=== PATIENT | female | born 1940 | race African-American/Black ===

== ENCOUNTER 2016-11-26 11:58 | Observation (INO) ==
[2016-11-26] MEDS ORDERED: methylPREDNISolone 125 MG/2 ML VIAL IVP ONE (12:13)
[2016-11-26] MEDS ORDERED: Ipratropium/Albuterol Neb 3 ML IH ONE (12:13)
[2016-11-26] MEDS ORDERED: Albuterol 2.5 MG/3 ML NEBULIZER IH ONE (12:13)
--- NOTE | 2016-11-26 12:17 | Emergency Department Note ---
Disposition Clinical Impression: CHF (congestive heart failure) Qualifiers: Congestive heart failure type: systolic Congestive heart failure chronicity: acute Qualified Code(s): I50.21 - Acute systolic (congestive) heart failure Disposition: Home, Self-Care Condition: Good Referrals: Fritz Sellers MD [Primary Care Provider] - Forms: Work/School Release, ED Satisfaction Letter Time of Disposition: 17:00 SOB HPI - General Chief Complaint: ED General Medical Stated Complaint: SPo2 of 78 and BP of 159/116 at [facility]M Time Seen by Provider: 11/26/16 12:10 Source: patient, EMS Mode of arrival: EMS Limitations: no limitations Nursing Notes Reviewed: Yes Vital Signs Reviewed: Yes - History of Present Illness 76-year-old black female sent from the residential with difficulty breathing. She was apparently noted be short of breath this morning. The patient states she has felt bad for about a week, she states she has had general weakness. She states she has had decreased appetite. She denies a cough. She denies chest pain. She denies fever. The residential noted an O2 saturation of 75% on room air. She was on 3 L on EMS arrival. Her O2 sat was in the 90s on 3 L when they arrived. Pt Subjective Complaint: shortness of breath Onset (ago): day(s) (1) Context: recent illness ( general weakness) Severity: moderate Consistency/Duration: constant Improves with: oxygen, rest Worsens with: exertion Known history of: asthma (As a child) Associated symptoms: Reports: other (Decreased appetite and generalized weakness ) Treatment prior to arrival: oxygen Cough present: No - Related Data Home oxygen amount: none Home Medications Medication Instructions Recorded Confirmed Alendronate Sodium [Fosamax] 70 mg PO QWEEK 11/06/16 11/06/16 Apixaban [Eliquis] 2.5 mg PO BID 11/06/16 11/06/16 Carvedilol [Coreg] 6.25 mg PO BID 11/06/16 11/06/16 CloNIDine Patch [Catapres-TTS] 0.3 mg TD DAILY 11/06/16 11/06/16 Furosemide [Lasix] 10 mg PO DAILY 11/06/16 11/06/16 Losartan Potassium [Cozaar] 100 mg PO DAILY 11/06/16 11/06/16 OLANZapine [Zyprexa] 10 mg IM PRN 11/06/16 OLANZapine [Zyprexa] 10 mg PO BID 11/06/16 11/06/16 risperiDONE 25 mg IM Q2W 11/06/16 11/06/16 Albuterol Sulfate [Albuterol 2 puff IH Q6HR 11/26/16 11/26/16 Inhaler] Allergies Allergy/AdvReac Type Severity Reaction Status Date / Time lisinopril Allergy Rash Verified 11/06/16 00:49 All systems ED: reviewed and negative except as stated. Constitutional: Denies: fever, chills Eyes: Denies: eye discharge ENT ED: Denies: ear pain, throat pain Cardiovascular: Denies: chest pain Respiratory: Reports: dyspnea. Denies: cough Gastrointestinal: Denies: abdominal pain, nausea, vomiting, diarrhea Genitourinary: Denies: urgency, dysuria, frequency Musculoskeletal: Denies: back pain Neurological: Reports: weakness. Denies: numbness, paresthesias Past Medical History - Past Medical History Medical history: Reports: CHF, dementia Psychiatric history: Reports: bipolar, schizophrenia - Social History Smoking Status: Never smoker Alcohol use: Reports: none Drug use: Reports: none Physical Exam - General Limitations: no limitations General appearance: lethargic (But arousable and oriented.) - Head Head exam: atraumatic, normocephalic - Eye Eye exam: Present: PERRL, EOMI, other (Anterior chamber lens is in both eyes.). Absent: scleral icterus, conjunctival injection - ENT ENT exam: normal oropharynx, mucous membranes dry, TM's normal bilaterally - Neck Neck exam: Present: normal inspection, full ROM, trachea midline. Absent: tenderness, lymphadenopathy - Respiratory Respiratory exam: Present: respiratory distress (Ears mildly dyspneic), wheezes (Rare bilateral expiratory), other (Diffuse decreased breath sounds bilaterally) . Absent: stridor, prolonged expiratory phase - Abdominal Exam Abdominal exam: Present: soft, Non-Tender, normal bowel sounds. Absent: organomegaly, mass - Extremities Exam Extremities exam: Present: normal inspection, full ROM, normal capillary refill. Absent: tenderness, pedal edema, calf tenderness - Neurological Exam Neurological exam: Present: oriented X3, CN II-XII intact, reflexes normal, other (Lethargic but arouses easily and converses normally and appears oriented. ). Absent: motor sensory deficit - Psychiatric Psychiatric exam: Present: flat affect - Skin Skin exam: Present: warm, dry, intact Course - Reevaluation(s) Reevaluation #1: The patient is diuresing. She has adult diapers on and keeps voiding and her adult diapers. We do not have a quantity on the urine output. She says she feels better. I spoke with Dr. Silvestre. He will admit to an observation telemetry bed. Time: 16:59 Vital Signs Temperature 98.2 F 11/26/16 12:04 Pulse Rate 78 11/26/16 12:04 Respiratory Rate 28 11/26/16 12:04 Blood Pressure 119/85 11/26/16 12:04 O2 Sat by Pulse Oximetry 92 11/26/16 12:04 Temperature 98.2 F 11/26/16 16:56 Pulse Rate 60 11/26/16 16:56 Respiratory Rate 18 11/26/16 16:56 Blood Pressure 115/70 11/26/16 16:56 O2 Sat by Pulse Oximetry 95 11/26/16 16:56 Oxygen Delivery Oxygen Delivery Room Air,Nasal Cannula Shortness of Breath/Dyspnea - MDM Narrative Medical decision making narrative: Differential includes but is not limited to sepsis, pneumonia, bronchitis with bronchospasm, pleural effusion, arrhythmia, congestive heart failure, respiratory failure. Her chest x-ray and BNP are consistent with a congestive heart failure. There is no evidence of an infarct, troponins are normal. - Lab Data Lab results reviewed: Yes I reviewed the patient's lab results. Result diagrams: 11/26/16 12:36 11/26/16 12:36 Lab Results 11/26/16 11/26/16 11/26/16 Range/Units 12:36 12:36 12:36 WBC 6.6 (4.3-11.1) K/mcL RBC 4.32 (3.82-4.97) M/mcL Hgb 10.9 L (11.5-15.4) g/dL Hct 33.6 L (35.3-44.9) % MCV 77.8 L (83.0-100.0) fL MCH 25.2 L (28.0-33.3) pg MCHC 32.4 (31.6-35.5) g/dL RDW 17.4 H (11.5-14.5) % Plt Count 165 (140-400) K/mcL Immature Gran % 0.6 (0-4) % Seg Neutrophils % 74.5 % Lymphocytes % 16.7 % Monocytes % 7.8 % Eosinophils % 0.2 % Basophils % 0.2 % Neutrophils # 4.9 (1.6-8.9) K/mcL Lymphocytes # 1.1 (0.6-4.6) K/mcL Monocytes # 0.5 (0.0-1.3) K/mcL Eosinophils # 0.0 (0.0-0.6) K/mcL Basophils # 0.0 (0.0-0.2) K/mcL PT 13.9 H (9.4-12.1) Seconds INR 1.3 ABG pH (7.32-7.45) pH Units ABG pCO2 (35-45) mmHg ABG pO2 (85-104) mmHg ABG HCO3 (21-27) mEQ/L ABG Total CO2 (20-26) mEq/L ABG O2 Saturation (95-98) % ABG Base Excess (-2.0 to 3.0) mEq/L VBG Lactic Acid (0.5-2.2) mmol/L Liter Flow L/MIN Blood Gas Modality Inspired O2 % Sodium 140 (136-145) mEq/L Potassium 4.3 (3.5-4.5) mEq/L Chloride 108 (98-109) mEq/L Carbon Dioxide 24 (19-29) mEq/L BUN 25 H (7-20) mg/dL Creatinine 0.89 (0.57-1.11) mg/dL Est GFR ( Amer) > 60 (> 60) Est GFR (Non-Af Amer) > 60 (> 60) BUN/Creatinine Ratio 28 H (6-26) Glucose 161 H (70-99) mg/dL Calculated Osmolality 298 (280-300) Calcium 8.6 (8.6-10.8) mg/dL Total Bilirubin 0.8 (0.2-1.2) mg/dL AST 24 (5-34) Units/L ALT 58 H (0-55) Units/L Alkaline Phosphatase 67 (38-126) Units/L Troponin I (0-0.03) ng/mL B-Natriuretic Peptide (0-100) pg/mL Serum Total Protein 5.1 L (6.0-8.3) g/dL Albumin 2.8 L (3.5-5.0) g/dL Globulin 2.3 L (2.4-3.5) g/dL Albumin/Globulin Ratio 1.2 (1.1-2.2) Urine Color (Yellow) Urine Clarity (Clear) Urine pH (5.0-8.0) pH Units Ur Specific [place] (1.010-1.025) Urine Protein (Neg-Trace) mg/dL Urine Glucose (UA) (Normal) mg/dL Urine Ketones (Negative) mg/dL Urine Blood (Negative) Urine Nitrite (Negative) Urine Bilirubin (Negative) Urine Urobilinogen (Normal) mg/dL Ur Leukocyte Esterase (Negative) Urine Microscopic RBC (0-3) per hpf Urine Microscopic WBC (0-3) per hpf Ur Squamous Epith Cells (None-Few) per lpf Urine Bacteria (None-Few) per hpf Ur Culture Indicated? (NO) 11/26/16 11/26/16 11/26/16 Range/Units 12:36 12:36 12:36 WBC (4.3-11.1) K/mcL RBC (3.82-4.97) M/mcL Hgb (11.5-15.4) g/dL Hct (35.3-44.9) % MCV (83.0-100.0) fL MCH (28.0-33.3) pg MCHC (31.6-35.5) g/dL RDW (11.5-14.5) % Plt Count (140-400) K/mcL Immature Gran % (0-4) % Seg Neutrophils % % Lymphocytes % % Monocytes % % Eosinophils % % Basophils % % Neutrophils # (1.6-8.9) K/mcL Lymphocytes # (0.6-4.6) K/mcL Monocytes # (0.0-1.3) K/mcL Eosinophils # (0.0-0.6) K/mcL Basophils # (0.0-0.2) K/mcL PT (9.4-12.1) Seconds INR ABG pH 7.34 (7.32-7.45) pH Units ABG pCO2 49 H (35-45) mmHg ABG pO2 68 L (85-104) mmHg ABG HCO3 26.5 (21-27) mEQ/L ABG Total CO2 28.0 H (20-26) mEq/L ABG O2 Saturation 92 L (95-98) % ABG Base Excess 0.8 (-2.0 to 3.0) mEq/L VBG Lactic Acid 2.5 H (0.5-2.2) mmol/L Liter Flow 3 L/MIN Blood Gas Modality [place] Inspired O2 32 % Sodium (136-145) mEq/L Potassium (3.5-4.5) mEq/L Chloride (98-109) mEq/L Carbon Dioxide (19-29) mEq/L BUN (7-20) mg/dL Creatinine (0.57-1.11) mg/dL Est GFR ( Amer) (> 60) Est GFR (Non-Af Amer) (> 60) BUN/Creatinine Ratio (6-26) Glucose (70-99) mg/dL Calculated Osmolality (280-300) Calcium (8.6-10.8) mg/dL Total Bilirubin (0.2-1.2) mg/dL AST (5-34) Units/L ALT (0-55) Units/L Alkaline Phosphatase (38-126) Units/L Troponin I 0.01 (0-0.03) ng/mL B-Natriuretic Peptide 1245 H (0-100) pg/mL Serum Total Protein (6.0-8.3) g/dL Albumin (3.5-5.0) g/dL Globulin (2.4-3.5) g/dL Albumin/Globulin Ratio (1.1-2.2) Urine Color (Yellow) Urine Clarity (Clear) Urine pH (5.0-8.0) pH Units Ur Specific [place] (1.010-1.025) Urine Protein (Neg-Trace) mg/dL Urine Glucose (UA) (Normal) mg/dL Urine Ketones (Negative) mg/dL Urine Blood (Negative) Urine Nitrite (Negative) Urine Bilirubin (Negative) Urine Urobilinogen (Normal) mg/dL Ur Leukocyte Esterase (Negative) Urine Microscopic RBC (0-3) per hpf Urine Microscopic WBC (0-3) per hpf Ur Squamous Epith Cells (None-Few) per lpf Urine Bacteria (None-Few) per hpf Ur Culture Indicated? (NO) 11/26/16 11/26/16 Range/Units 13:52 15:07 WBC (4.3-11.1) K/mcL RBC (3.82-4.97) M/mcL Hgb (11.5-15.4) g/dL Hct (35.3-44.9) % MCV (83.0-100.0) fL MCH (28.0-33.3) pg MCHC (31.6-35.5) g/dL RDW (11.5-14.5) % Plt Count (140-400) K/mcL Immature Gran % (0-4) % Seg Neutrophils % % Lymphocytes % % Monocytes % % Eosinophils % % Basophils % % Neutrophils # (1.6-8.9) K/mcL Lymphocytes # (0.6-4.6) K/mcL Monocytes # (0.0-1.3) K/mcL Eosinophils # (0.0-0.6) K/mcL Basophils # (0.0-0.2) K/mcL PT (9.4-12.1) Seconds INR ABG pH (7.32-7.45) pH Units ABG pCO2 (35-45) mmHg ABG pO2 (85-104) mmHg ABG HCO3 (21-27) mEQ/L ABG Total CO2 (20-26) mEq/L ABG O2 Saturation (95-98) % ABG Base Excess (-2.0 to 3.0) mEq/L VBG Lactic Acid (0.5-2.2) mmol/L Liter Flow L/MIN Blood Gas Modality Inspired O2 % Sodium (136-145) mEq/L Potassium (3.5-4.5) mEq/L Chloride (98-109) mEq/L Carbon Dioxide (19-29) mEq/L BUN (7-20) mg/dL Creatinine (0.57-1.11) mg/dL Est GFR ( Amer) (> 60) Est GFR (Non-Af Amer) (> 60) BUN/Creatinine Ratio (6-26) Glucose (70-99) mg/dL Calculated Osmolality (280-300) Calcium (8.6-10.8) mg/dL Total Bilirubin (0.2-1.2) mg/dL AST (5-34) Units/L ALT (0-55) Units/L Alkaline Phosphatase (38-126) Units/L Troponin I 0.02 (0-0.03) ng/mL B-Natriuretic Peptide (0-100) pg/mL Serum Total Protein (6.0-8.3) g/dL Albumin (3.5-5.0) g/dL Globulin (2.4-3.5) g/dL Albumin/Globulin Ratio (1.1-2.2) Urine Color Yellow (Yellow) Urine Clarity Clear (Clear) Urine pH 5.5 (5.0-8.0) pH Units Ur Specific [place] 1.015 (1.010-1.025) Urine Protein Trace (Neg-Trace) mg/dL Urine Glucose (UA) Normal (Normal) mg/dL Urine Ketones Negative (Negative) mg/dL Urine Blood Trace-lysed H (Negative) Urine Nitrite Negative (Negative) Urine Bilirubin Negative (Negative) Urine Urobilinogen Normal (Normal) mg/dL Ur Leukocyte Esterase Negative (Negative) Urine Microscopic RBC 0-3 (0-3) per hpf Urine Microscopic WBC 0-3 (0-3) per hpf Ur Squamous Epith Cells Moderate H (None-Few) per lpf Urine Bacteria Few (None-Few) per hpf Ur Culture Indicated? NO (NO) - Radiology Data Radiology results reviewed: Yes I reviewed the patient's radiology results. ITS Impressions Chest X-Ray 11/26/16 12:13 IMPRESSION: Findings suggest congestive heart failure D/ / Saul Francisco MD / Saul Francisco MD Interpreting Provider: Saul Francisco MD - EKG Data EKG attestation: Yes I reviewed and interpreted this EKG. EKG results narrative: Sinus rhythm, rate of 78 with sinus arrhythmia, wave flattening in the inferior leads, T-wave inversion over the anterior precordium, possible ischemia. Rhythm strip shows a sinus rhythm with a rate of 78, VA interval 130 ms, a QRS of 86 ms with no other ectopy as interpreted by me. This is compared to a tracing dated 11/10, T-wave flattening in the inferior leads is new, T-wave flattening/inversion is slightly more pronounced in the anterior precordial leads.
[2016-11-26 12:53] LABS: Basophils % 0.2 %; Eosinophils % 0.2 %; Hematocrit 33.6 % (35.3-44.9); Hemoglobin 10.9 g/dL (11.5-15.4); Immature Granulocytes % 0.6 % (0-4); Lymphocytes # 1.1 K/mcL (0.6-4.6); Lymphocytes % 16.7 %; Mean Corpuscular HGB Conc 32.4 g/dL (31.6-35.5); Mean Corpuscular Hemoglobin 25.2 pg (28.0-33.3); Mean Corpuscular Volume 77.8 fL (83.0-100.0); Monocytes # 0.5 K/mcL (0.0-1.3); Monocytes % 7.8 %; Neutrophils # 4.9 K/mcL (1.6-8.9); Platelet Count 165 K/mcL (140-400); Red Blood Count 4.32 M/mcL (3.82-4.97); Red Cell Distribution Width 17.4 % (11.5-14.5); Segmented Neutrophils % 74.5 %
[2016-11-26 12:58] LABS: INR 1.3; Prothrombin Time 13.9 Seconds (9.4-12.1)
[2016-11-26 13:11] LABS: Alanine Aminotransferase 58 Units/L (0-55); Albumin 2.8 g/dL (3.5-5.0); Albumin/Globulin Ratio 1.2 (1.1-2.2); Alkaline Phosphatase 67 Units/L (38-126); Aspartate Amino Transferase 24 Units/L (5-34); BUN/Creatinine Ratio 28 (6-26); Bilirubin,Total 0.8 mg/dL (0.2-1.2); Blood Urea Nitrogen 25 mg/dL (7-20); Calcium 8.6 mg/dL (8.6-10.8); Carbon Dioxide 24 mEq/L (19-29); Chloride 108 mEq/L (98-109); Globulin 2.3 g/dL (2.4-3.5); Glucose 161 mg/dL (70-99); Osmolality,Calculated 298 (280-300); Potassium 4.3 mEq/L (3.5-4.5); Sodium 140 mEq/L (136-145); Total Protein 5.1 g/dL (6.0-8.3); eGFR For African Americans > 60 (> 60); eGFR For Non-African Americans > 60 (> 60)
[2016-11-26 13:22] LABS: ABG HCO3 26.5 mEQ/L (21-27); ABG PCO2 49 mmHg (35-45); ABG PH 7.34 pH Units (7.32-7.45); ABG PO2 68 mmHg (85-104)
[2016-11-26 13:23] LABS: ABG Base Excess 0.8 mEq/L (-2.0 to 3.0); ABG Oxygen Saturation 92 % (95-98); Blood Gas FiO2 32 %; Blood Gas Liter Flow 3 L/MIN
[2016-11-26] MEDS ORDERED: Furosemide 40 MG/4 ML VIAL IVP ONE (13:30)
[2016-11-26 13:56] LABS: Bilirubin,Urine Negative (Negative); Blood,Urine Trace-lysed (Negative); Clarity,Urine Clear (Clear); Color,Urine Yellow (Yellow); Glucose,Urine (UA) Normal (Normal); Ketones,Urine Negative (Negative); Leukocyte Esterase,Urine Negative (Negative); Nitrite,Urine Negative (Negative); PH,Urine 5.5 pH Units (5.0-8.0); Protein,Urine Trace mg/dL (Neg-Trace); Specific Gravity,Urine 1.015 (1.010-1.025); Urobilinogen,Urine Normal (Normal)
[2016-11-26 14:06] LABS: Squamous Epithelial Cell,Urine Moderate per lpf (None-Few)
[2016-11-26 14:07] LABS: Bacteria,Urine Few per hpf (None-Few); RBC,Urine 0-3 per hpf (0-3); WBC,Urine 0-3 per hpf (0-3)
[2016-11-26] MEDS ORDERED: Naloxone 0.4 MG/ML INJ IVP PRN (17:32)
[2016-11-26] MEDS: Furosemide 40 MG/4 ML VIAL IVP SCH (20:06)
[2016-11-26] MEDS: APIXABAN 5 MG TABLET PO SCH (21:52)
[2016-11-26] MEDS: OLANZapine 10 MG TAB.RAPDIS PO SCH (21:52)
[2016-11-27] MEDS ORDERED: CloNIDine Patch 0.1 MG PATCH (WEEKLY) TD SCH (09:00)
--- NOTE | 2016-11-27 11:42 | Internal Med History&Physical ---
Date of Encounter: 11/27/16 Time of Encounter: 11:10 Assessment and Plan (1) CHF (congestive heart failure) Current visit: Yes Status: Acute Type and duration unknown. I will order an echocardiogram. We will give additional diuretic and start oral nitrates. Continue resident regimen otherwise. Qualifiers: Congestive heart failure type: unspecified congestive heart failure type Congestive heart failure chronicity: unspecified congestive heart failure chronicity Qualified Code(s): I50.9 - Heart failure, unspecified (2) Microcytic anemia Current visit: Yes Status: Acute We will order anemia testing in a.m. (3) Low TSH level Current visit: Yes Status: Acute TSH was suppressed at 0.186 on 11/06/2016. We recheck TSH in a.m. Internal Medicine - H&P: HPI Chief complaint: Dyspnea Admitted From: Long-term Nursing Facility Plans for Post Hospital Care: Transfer Long-Term Care History of present illness: Ms. Fontanez is a 76 year old female who came to emergency room from the correction after she reported dyspnea. She states dyspnea onset was approximately 1 week ago. She reports there was cough with minimal productivity. She denies pain. She states she felt slightly weak overall. She was evaluated in emergency room and felt to have exacerbation of heart failure. She was admitted to [facility] floor for ongoing care needs. Her cardiovascular history is significant for hypertension. She thinks she had an echocardiogram approximately 1 year ago. She reports a heart catheter approximately 2006 without further intervention recommended. She does not ambulate much at the correction but states she does get dyspneic on exertion. She reports she has had a "blood clot" but thinks it was in her brain rather than her legs or lungs. Her respiratory history significant for being a lifelong nonsmoker and having no documented chronic lung disease. Past Med Surg Social Fam HX - Past Medical History Medical history: CHF, dementia Psychiatric history: bipolar, schizophrenia, other - Past Surgical History Surgical History: orthopedic, other - Social History Smoking Status: Never smoker Smokeless Tobacco Status: No Alcohol use: none Drug use: none Internal Medicine - H&P: Meds Alendronate Sodium [Fosamax] 70 mg PO QWEEK 11/06/16 [History] Apixaban [Eliquis] 2.5 mg PO BID 11/06/16 [History] Carvedilol [Coreg] 6.25 mg PO BID 11/06/16 [History] CloNIDine Patch [Catapres-TTS] 0.3 mg TD DAILY 11/06/16 [History] Furosemide [Lasix] 10 mg PO DAILY 11/06/16 [History] Losartan Potassium [Cozaar] 100 mg PO DAILY 11/06/16 [History] OLANZapine [Zyprexa] 10 mg IM BID PRN 11/06/16 [History] OLANZapine [Zyprexa] 10 mg PO BID 11/06/16 [History] risperiDONE 25 mg IM Q2W 11/06/16 [History] Albuterol Sulfate [Albuterol Inhaler] 2 puff IH Q6HR 11/26/16 [History] Allergies lisinopril Allergy (Verified 11/06/16 00:49) Rash All Systems PM: A 10-system review of systems was performed and is negative for pertinent findings except as documented above in the HPI. Review of systems: Gen.: She states her weight has been stable the past few months Cardiovascular: As per history of present illness Respiratory: As per history of present illness GI: She denies disorders of her liver gallbladder or exocrine pancreas : She denies hematuria dysuria or kidney stones Neurologic: She denies large distribution strokes or seizures. She thinks she had a syncopal episode and has what sounds to be possible TIA 2 years ago without recurrence Endocrine: She reports thyroid abnormality in the past but does not know details. She denies diabetes or hyperlipidemia Hematology/oncology: She has had anemia in the past but does not know details. She denies other blood disorders or internal malignancies Psychiatric: She has bipolar disorder. [place] skeletal: She denies arthritis or gout. - Constitutional Vitals: Temp Pulse Resp BP Pulse Ox 98.5 F 61 14 95/60 93 11/27/16 10:36 11/27/16 10:36 11/27/16 10:36 11/27/16 10:36 11/27/16 10:36 Exam: Gen.: She is a well-developed well-nourished female who appears slightly dyspneic sitting in a chair at bedside HEENT: Head is atraumatic and normocephalic. Eyes: EOMI. There is no scleral icterus. Mouth: Mucosa is moist. Neck: Supple and nontender. There is no thyromegaly or adenopathy noted. Heart: Regular without murmurs gallops or ectopics Lungs: No wheezes or crackles are heard. Abdomen: soft and nontender. No masses or guarding are noted. Exam is limited because she is in the seated position. Extremities: There is no cyanosis edema or clubbing noted. Dorsalis pedis and posterior tibial pulses are trace palpable bilaterally. Neurologic: Mental status: She is talkative and seems to be a reliable historian. Cranial nerves: Smile is symmetric. Forehead wrinkles bilaterally. Tongue protrudes midline. EOMI. Motor: There is no pronator drift. Cerebellar: Finger to nose is intact bilaterally. Skin: Warm and dry Internal Med - H&P Results - Labs CBC & Chem 7: 11/26/16 12:36 11/26/16 12:36 Labs: Cardiac Enzymes 11/26/16 11/27/16 11/27/16 Range/Units 21:00 03:20 09:07 Troponin I 0.01 0.04 H* 0.00 (0-0.03) ng/mL - VTE Reasons for not Prescribing Prophylaxis: Not indicated-Anticoagulated or INR therapeutic
[2016-11-27] MEDS: Furosemide 40 MG/4 ML VIAL IVP SCH ×2 (12:25→18:30)
[2016-11-27] MEDS ORDERED: Acetaminophen 325 MG TABLET PO PRN (12:36)
[2016-11-27] MEDS: APIXABAN 5 MG TABLET PO SCH ×2 (13:02→20:11)
[2016-11-27] MEDS: Isosorbide MONOnitrate (24 HR) 30 MG TAB.ER.24H PO SCH (13:03)
[2016-11-27] MEDS: OLANZapine 10 MG TAB.RAPDIS PO SCH ×2 (13:04→20:10)
[2016-11-27] MEDS: ALPRAZolam 0.5 MG TABLET PO PRN (14:59)
[2016-11-28] MEDS: ALPRAZolam 0.5 MG TABLET PO PRN ×2 (03:33→13:02)
[2016-11-28 05:06] LABS: BUN/Creatinine Ratio 36 (6-26); Blood Urea Nitrogen 30 mg/dL (7-20); Calcium 8.7 mg/dL (8.6-10.8); Carbon Dioxide 27 mEq/L (19-29); Chloride 105 mEq/L (98-109); Glucose 111 mg/dL (70-99); Osmolality,Calculated 301 (280-300); Potassium 3.4 mEq/L (3.5-4.5); Sodium 142 mEq/L (136-145); eGFR For African Americans > 60 (> 60); eGFR For Non-African Americans > 60 (> 60)
[2016-11-28 05:28] LABS: Thyroid Stimulating Hormone 0.441 mcIU/mL (0.350-4.840)
[2016-11-28 06:09] LABS: Basophils % 0.2 %; Eosinophils # 0.1 K/mcL (0.0-0.6); Eosinophils % 0.9 %; Hemoglobin 10.5 g/dL (11.5-15.4); Immature Granulocytes % 0.4 % (0-4); Lymphocytes # 2.6 K/mcL (0.6-4.6); Lymphocytes % 31.8 %; Mean Corpuscular HGB Conc 32.8 g/dL (31.6-35.5); Mean Corpuscular Hemoglobin 25.7 pg (28.0-33.3); Mean Corpuscular Volume 78.2 fL (83.0-100.0); Monocytes # 0.8 K/mcL (0.0-1.3); Monocytes % 9.6 %; Neutrophils # 4.7 K/mcL (1.6-8.9); Platelet Count 151 K/mcL (140-400); Red Blood Count 4.09 M/mcL (3.82-4.97); Red Cell Distribution Width 17.4 % (11.5-14.5); Segmented Neutrophils % 57.1 %
[2016-11-28] MEDS: OLANZapine 10 MG TAB.RAPDIS PO SCH (08:49)
[2016-11-28] MEDS: Isosorbide MONOnitrate (24 HR) 30 MG TAB.ER.24H PO SCH (08:49)
[2016-11-28] MEDS: Furosemide 40 MG/4 ML VIAL IVP SCH ×2 (08:50→17:41)
[2016-11-28] MEDS: APIXABAN 5 MG TABLET PO SCH (09:01)
[2016-11-28 10:38] LABS: % Iron Saturation 6 % (15-50); Iron 21 mcg/dL (50-170); Transferrin 252 mg/dL (180-382)
[2016-11-28 10:55] LABS: Ferritin 16 ng/ml (5-204)
[2016-11-28 11:10] LABS: Folate 8.1 ng/mL (7.0-31.4)
--- NOTE | 2016-11-28 12:50 | Electrocardiograph Report ---
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
[2016-11-28 16:20] VITALS: BP 109/73
--- NOTE | 2016-11-28 17:42 | Discharge Summary ---
Date of Encounter: 11/28/16 Time of Encounter: 17:25 - Discharge Diagnosis (1) CHF (congestive heart failure) Priority: Primary Status: Acute Qualifiers: Congestive heart failure type: unspecified congestive heart failure type Congestive heart failure chronicity: unspecified congestive heart failure chronicity Qualified Code(s): I50.9 - Heart failure, unspecified (2) Microcytic anemia Priority: Secondary Status: Acute (3) Low TSH level Priority: Secondary Status: Resolved - Discharge Medications Prescriptions: Ascorbic Acid [Vitamin C] 500 mg PO DAILY 30 Days Ferrous Sulfate 325 mg PO DAILY 30 Days Potassium Chloride 10 meq PO DAILY 365 Days Home Medications: Alendronate Sodium [Fosamax] 70 mg PO QWEEK 11/06/16 [History] Apixaban [Eliquis] 2.5 mg PO BID 11/06/16 [History] Carvedilol [Coreg] 6.25 mg PO BID 11/06/16 [History] Losartan Potassium [Cozaar] 100 mg PO DAILY 11/06/16 [History] OLANZapine [Zyprexa] 10 mg IM BID PRN 11/06/16 [History] OLANZapine [Zyprexa] 10 mg PO BID 11/06/16 [History] risperiDONE 25 mg IM Q2W 11/06/16 [History] Albuterol Sulfate [Albuterol Inhaler] 2 puff IH Q6HR 11/26/16 [History] Ascorbic Acid [Vitamin C] 500 mg PO DAILY 30 Days 11/28/16 [Rx] Ferrous Sulfate 325 mg PO DAILY 30 Days 11/28/16 [Rx] Furosemide [Lasix] 40 mg PO DAILY #0 11/28/16 [Rx] Isosorbide MONOnitrate (24 HR) [Imdur] 30 mg PO DAILY tab.er.24h 11/28/16 [Rx] Potassium Chloride 10 meq PO DAILY 365 Days 11/28/16 [Rx] Allergies/Adverse Reactions: Allergies lisinopril Allergy (Verified 11/06/16 00:49) Rash Procedures/tests Complete & Pending: Procedures Performed prior 72 hours Category Date Time Status CT angio chest [CT] Routine Cat Scan 11/28/16 03:53 Completed EV echocardiogram Routine Y 11/27/16 12:00 Ordered Date of admission: 11/26/16 17:30 Primary care physician: Fritz Sellers MD Consults: 11/26/16 18:42 Consult to Component Assembler [CONS] Routine Reason for SW Consult: D/C planning - from [facility]M patient also requesting to speak with SW about a different ECF - Patient Status Disposition: Transfer SNF Condition: Good Functional capacity at discharge: uses cane/walker Overall status at discharge: patient is progressing back to baseline - Discharge Instructions Follow Up With: Fritz Sellers MD [Primary Care Provider] - 1 week - Diet and Activity Activity: resume usual activities as tolerated Diet: advance to your usual diet Hospital course: Ms. Fontanez is a 76 year old female who came to emergency room from the detention after she reported dyspnea. She states dyspnea onset was approximately 1 week ago. She reports there was cough with minimal productivity. She denies pain. She states she felt slightly weak overall. She was evaluated in emergency room and felt to have exacerbation of heart failure. She was admitted to [facility] floor for ongoing care needs. Initial orders were written by the emergency room physician. I saw her November 27 and performed a history and physical. A 2-D Echocardiogram was ordered and was completed the late afternoon of November 28. Report is pending at time of discharge. She was given IV Lasix and had good diuresis. Her BNP peptide improved to 551 and there was resolution of her complaints of dyspnea. She will return to the detention on increased dose of Lasix and have supplemental potassium given. I also added isosorbide. Anemia testing showed iron 21, transferrin saturation 6%, transferrin 252, ferritin 16, B12 613, and folate 8.1. She will receive ferrous sulfate with vitamin C at the detention. Her PCP can monitor her anemia response. TSH returned normal at 0.441. On November 28 I felt she was stable for discharge back to [facility] where she will follow with Dr. Sellers. - Time Spent with Patient Total time spent providing and/or coordinating discharge services: - Constitutional Vitals: Temp Pulse Resp BP Pulse Ox 98.8 F 71 18 109/73 95 11/28/16 16:18 11/28/16 16:18 11/28/16 16:18 11/28/16 16:18 11/28/16 15:22 - VTE Reasons for not Prescribing Prophylaxis: Not indicated-Anticoagulated or INR therapeutic
--- NOTE | 2016-11-28 17:49 | Physician Discharge Referral ---
[facility] Referral Info Transfer To: [facility] Provider in Charge: [place] Provider in Charge after Transfer: PCP (Fritz Sellers M.D.) - Diagnosis (1) CHF (congestive heart failure) Priority: Primary Status: Acute (2) Microcytic anemia Priority: Secondary Status: Acute (3) Low TSH level Priority: Secondary Status: Resolved Prognosis: Fair Aware of Diagnosis: Patient Aware of Prognosis: Patient - Transfer Medications Prescriptions: Ascorbic Acid [Vitamin C] 500 mg PO DAILY 30 Days Ferrous Sulfate 325 mg PO DAILY 30 Days Potassium Chloride 10 meq PO DAILY 365 Days Home Medications: Alendronate Sodium [Fosamax] 70 mg PO QWEEK 11/06/16 [History] Apixaban [Eliquis] 2.5 mg PO BID 11/06/16 [History] Carvedilol [Coreg] 6.25 mg PO BID 11/06/16 [History] Losartan Potassium [Cozaar] 100 mg PO DAILY 11/06/16 [History] OLANZapine [Zyprexa] 10 mg IM BID PRN 11/06/16 [History] OLANZapine [Zyprexa] 10 mg PO BID 11/06/16 [History] risperiDONE 25 mg IM Q2W 11/06/16 [History] Albuterol Sulfate [Albuterol Inhaler] 2 puff IH Q6HR 11/26/16 [History] Ascorbic Acid [Vitamin C] 500 mg PO DAILY 30 Days 11/28/16 [Rx] Ferrous Sulfate 325 mg PO DAILY 30 Days 11/28/16 [Rx] Furosemide [Lasix] 40 mg PO DAILY #0 11/28/16 [Rx] Isosorbide MONOnitrate (24 HR) [Imdur] 30 mg PO DAILY tab.er.24h 11/28/16 [Rx] Potassium Chloride 10 meq PO DAILY 365 Days 11/28/16 [Rx] Allergies/Adverse Reactions: Allergies lisinopril Allergy (Verified 11/06/16 00:49) Rash - Respiratory Orders Smoking Cessation: Smoking cessation has been advised. For more information, call the [place] Tobacco Quit Line at 2-046-GZZK-NOW. - Lab Orders Lab Orders: Other (include drug levels w/frequency) (CBC with differential, BMP , BN Peptide, magnesium level in 1 week) - Mobility Orders Ambulate - Rehabiliation Orders Rehab Potential: Fair CERTIFICATION: I certify that the transfer of the above named patient to an Extended Care Facility is necessary for the continuing treatment of the diagnosis listed. The above information is true and accurate reflection of patient's current condition. Confidential - Redisclosure prohibited without a patient's written consent.
[2016-12-01] MEDS ORDERED: (Alendronate Sodium [Fosamax] 70 MG) PO SCH (07:00)
[2016-12-10] MEDS ORDERED: RisperiDONE MICROSPHERES 25 MG/2 ML SYRINGE IM SCH (09:00)
== END 2016-11-28 19:09 ==
LOC: EMEROOPIK 11:58 → INPPIK 11:58
PROVIDERS: ADMIT Internal Medicine; ATTEND Internal Medicine